=== PATIENT | male | born 1955 | race Caucasian/White ===

== ENCOUNTER 2019-08-09 16:31 | Emergency (ER) | payer MEDICAID, SELFPAY | END 2019-08-09 17:22 | disposition home or self-care (01) | LOC: NAV ERS 16:31 | DX: T16.2XXA Foreign body in left ear, initial encounter (principal); Z87.891 Personal history of nicotine dependence | CPT/HCPCS: 69200 ==

== ENCOUNTER 2023-11-04 13:20 | Emergency (ER) | payer MEDICAID, OTHER ==
[2023-11-04] MEDS ORDERED: Ketorolac Tromethamine 30 MG (1 mL) VIAL ONE (14:23)
[2023-11-04] MEDS ORDERED: Orphenadrine Citrate 60 MG/2 ML VIAL ONE (14:23)
== END 2023-11-04 14:38 | disposition home or self-care (01) ==
LOC: NAV ERS 13:20
DX: M54.50 Low back pain, unspecified (principal); Z87.891 Personal history of nicotine dependence; X50.1XXA Overexertion from prolonged static or awkward postures, initial encounter
CPT/HCPCS: 72100; 96372; 99283; J1885; J2360

== ENCOUNTER 2024-02-03 17:33 | Emergency (ER) | payer OTHER | END 2024-02-03 18:06 | disposition home or self-care (01) | LOC: NAV ERS 17:33 | DX: K59.00 Constipation, unspecified (principal); F17.210 Nicotine dependence, cigarettes, uncomplicated | CPT/HCPCS: 99283 ==

== ENCOUNTER 2024-03-06 11:55 | Emergency (ER) | payer OTHER ==
[2024-03-06 12:37] LABS: INR-International Normal Ratio 1.4; PTT 38.4 sec (22.9-36.1); Prothrombin Time 17.6 sec (12.0-14.7)
[2024-03-06 12:44] LABS: ALT (SGPT) 30 U/L (8-55); AST (SGOT) 18 U/L (5-34); Albumin 3.5 g/dL (3.4-4.8); Alkaline Phosphatase 68 U/L (40-110); Anion Gap 19 mmol/L (10-20); BUN (Urea Nitrogen) 41 mg/dL (8.4-25.7); Bilirubin, Total 0.9 mg/dL (0.2-1.2); Calc. Creatinine Clearance 0 mL/min (70-130); Carbon Dioxide 19 mmol/L (23-31); Chloride 98 mmol/L (98-107); Estimated GFR 34; Globulin 3.8 g/dL (2.4-3.5); Glucose 102 mg/dL (80-115); Potassium 3.9 mmol/L (3.5-5.1); Protein, Total 7.3 g/dL (5.8-8.1); Sodium 132 mmol/L (136-145)
[2024-03-06 13:06] LABS: Band 18 % (5-11); Hematocrit 43.5 % (42.0-52.0); Lymphocytes 3 % (21-51); MDiff Complete? YES; Mean Corpuscular HGB CONC 32.1 g/dL (32.0-36.0); Mean Corpuscular Hemoglobin 27.6 pg (27.0-31.0); Mean Platelet Volume 7.4 fL (7.4-10.4); Metamyelocyte 1 % (0-0); Monocytes 6 % (0-10); Myelocyte 1 % (0-0); Neutrophil 70 % (42-75); Platelet Adequacy Comment Appears Adequate; Platelet Count 221 10x3/uL (130-400); RBC Distribution Width 11.8 % (11.5-14.5); Red Blood Cell (RBC) Count 5.06 mill/uL (4.70-6.10); White Blood Cell (WBC) Count 25.7 10x3/uL (4.8-10.8)
[2024-03-06 18:20] LABS: Bilirubin Negative (Negative); Blood, Urine Negative (Negative); Clarity Clear (Clear); Glucose, Urine (Dipstick) Negative (Negative); Ketone, Urine Negative (Negative); Leukocyte Negative (Negative); Nitrite Negative (Negative); Protein, Urine (Dipstick) Trace mg/dL (Neg-Trace); Urobilinogen 0.2 mg/dL (Less than 2)
[2024-03-06 18:29] LABS: CAUTI Indications for Culture Fever or rigors; Squamous Epithelial 0-3 HPF (0-3); WBC/HPF 0-3 HPF (0-3)
[2024-03-06 18:30] LABS: Amphetamine Detected (NotDetected); Barbiturates Screen Not Detected (NotDetected); Benzodiazepine Screen Not Detected (NotDetected); Cocaine Metabolite Screen Not Detected (NotDetected); Methadone Not Detected (NotDetected); Methamphetamine Detected (NotDetected); Opiate Screen Not Detected (NotDetected); Oxycodone Screen Not Detected (NotDetected); Phencyclidine (PCP) Not Detected (NotDetected); THC/Cannabinoid Screen Not Detected (NotDetected); Tricyclic Screen Not Detected (NotDetected); Urine Culture Reflex No No
== END 2024-03-06 19:03 | disposition short-term general hospital (02) ==
LOC: NAV ERS 11:55
DX: A41.9 Sepsis, unspecified organism (principal); J18.1 Lobar pneumonia, unspecified organism; E87.1 Hypo-osmolality and hyponatremia; R09.02 Hypoxemia; N28.9 Disorder of kidney and ureter, unspecified; F17.210 Nicotine dependence, cigarettes, uncomplicated
CPT/HCPCS: 71046; 80053; 80306; 81001; 83605; 85025; 85610; 85730; 87040; 87070; 87205; 87428; 93005; 94640; 94760; 96374; 96375